=== PATIENT | female | born 1960 | race American Indian/Alaskan Native ===

== ENCOUNTER 2017-10-04 05:46 | Emergency (ER) | payer MEDICARE ==
[2017-10-04 06:59] VITALS: BP 140/78
[2017-10-04 07:36] LABS: Bilirubin,Urine NEG (Negative); Blood,Urine NEG (Negative); Color,Urine Yellow (Yellow); Mucus,Urine 1+ /HPF; Protein,Urine <15 mg/dL mg/dL (Negative); Urobilinogen,Urine < 2.0 mg/dL (<2.0); WBC,Urine < 1.0 /HPF (0.0-6.0)
--- NOTE | 2017-10-04 08:26 | Emergency Department Report ---
ED Rash HPI - HPI Chief Complaint: Urogenital-Female Stated Complaint: BURNING URINATION Time Seen by Provider: 10/04/17 08:15 Duration: 2 Days Location: Other (genital area burning or rash and redness) Suspected Cause: Unknown Rash Symptoms: Yes Itching (burning ), No Facial Swelling, No Tongue/Oral Swelling, No Breathing Difficulties, No Choking Sensation, No Wheezing/Dyspnea, No Peeling, No Blistering, No Fever, No Lightheaded, No Malaise, No Myalgias Severity: severe Other History: This is a 57-year-old female here report that she has vaginal burning and redness and think she has a yeast infection. She has a history of high blood question high cholesterol. She said this has happened to her in the past after taking antibiotics. She denies any vaginal bleeding or discharge. Denies any burning with urination. Denies any fever or chills. Denies any abdominal pain. Denies any back pain. Patient is menopausal. Pain is 9 out of 10 to vaginal area. Burning and worse with walking and touch better at rest. No medication taken for pain. ED Review of Systems ROS: Stated complaint: BURNING URINATION Other details as noted in HPI Constitutional: denies: chills, fever Respiratory: denies: cough, shortness of breath, SOB with exertion, SOB at rest , wheezing Cardiovascular: denies: chest pain, palpitations, edema, syncope Gastrointestinal: denies: nausea, vomiting Genitourinary: other (redness swelling and burning to external vaginal area). denies: urgency, dysuria, frequency, hematuria, discharge, abnormal menses Musculoskeletal: denies: back pain, joint swelling, arthralgia, myalgia Skin: rash, pruritus. denies: lesions Neurological: denies: headache, paresthesias ED Past Medical Hx - Past Medical History Previous Medical History?: Yes Hx Hypertension: Yes Additional medical history: High Cholesterol - Surgical History Past Surgical History?: Yes Additional Surgical History: X 1, Gastric sleeve - Family History Family history: hypertension - Social History Smoking Status: Never Smoker Substance Use Type: None - Medications Home Medications: Home Medications Medication Instructions Recorded Confirmed Last Taken Type Fluconazole [Diflucan TAB] 200 mg PO QDAY 2 Days #2 tablet 10/04/17 Unknown Rx Nystatin Oint [Mycostatin Oint] 1 applicatio TP TID 1 Days #1 tube 10/04/17 Unknown Rx Rash Exam - Exam General: Vital signs noted. No distress. Alert and acting appropriately. This is a 57-year-old female well-nourished well-developed in no acute distress. HEENT: No Periorbital Edema, No Conjuctival Injection, No Chemosis, No Perioral Edema, No Tongue Edema, No Uvular Edema, No Compromised Airway, No Drooling Lungs: Yes Good Air Exchange (CTAB), No Wheezes, No Ronchi, No Stridor, No Cough , No Labored Respirations, No Retractions, No Use of Accessory Muscles, No Other Abnormal Lung Sounds Skin: Yes Tenderness (vulvovaginal area), Yes Erythema (vulvovaginal area), No Urticarial Rash, No Maculopapular Rash, No Morbilliform rash, No Bulla(e), No Excoriations, No Weeping, No Edema, No Encrustations, No Other Other: Positive: Abdomen Normal, Neurologic Normal, Musculoskeletal Normal ED Course Vital Signs 10/04/17 06:49 Temperature 98 F Pulse Rate 58 L Respiratory 16 Rate Blood Pressure 140/78 O2 Sat by Pulse 97 Oximetry - Reevaluation(s) Reevaluation #1: 10/04/17 08:40 Patient remained stable throughout ED stay. ED Medical Decision Making - Medical Decision Making This is a 57-year-old female here report redness swelling itching and burning to her vaginal area that started 2 days ago. She says she has had similar incident in the past after he uses an antibiotic. Denies any vaginal bleeding or discharge. Denies any abdominal or back pain. Denies any urinary burning or frequency. I examined patient and she was found to have vulvovaginitis andrae in nature. I discussed her diagnosis and treatment plan. Patient urinalysis with negative findings. I also discussed her urinalysis results with her. I discussed diagnosis and treatment plan and she voiced understanding. I discussed the patient that she needs to follow-up with her CURB WORKER and if she does not have OB/ MACHINERY REPAIR MAINTENANCE SUPERVISOR that she is to follow-up with outside [facility] CURB WORKER follow-up vulvovaginitis and 2-3 days and she voiced understanding. Patient vital signs are stable she is afebrile and discharged home with prescription for nystatin topical ointment and Diflucan. Critical care attestation.: If time is entered above; I have spent that time in minutes in the direct care of this critically ill patient, excluding procedure time. ED Disposition Clinical Impression: Vulvovaginitis Disposition: - TO HOME OR SELFCARE Is pt being admited?: No Does the pt Need Aspirin: No Condition: Stable Instructions: Vulvovaginal Candidiasis (ED) Additional Instructions: Please keep affected area clean and dry The CURB WORKER in 2-3 days Take medication as prescribed Prescriptions: Fluconazole [Diflucan TAB] 200 mg PO QDAY 2 Days #2 tablet Nystatin Oint [Mycostatin Oint] 1 applicatio TP TID 1 Days #1 tube Referrals: [facility] [Outside] - 2-3 Days ANDIE HAIDER MD [Staff Physician] - 2-3 Days PRIMARY CARE, [Primary Care Provider] - 2-3 Days Forms: Work/School Release Form(ED)
== END 2017-10-04 08:50 | disposition home or self-care (01) ==
LOC: ED 05:46
DX: N76.0 Acute vaginitis (principal); E78.00 Pure hypercholesterolemia, unspecified; I10 Essential (primary) hypertension
CPT/HCPCS: 81001; 99283

== ENCOUNTER 2017-10-20 04:43 | Emergency (ER) | payer MEDICARE ==
--- NOTE | 2017-10-20 08:53 | Emergency Department Report ---
Minor Respiratory - HPI Chief Complaint: Back Pain/Injury Stated Complaint: EXPOSE TO MOLD Time Seen by Provider: 10/20/17 08:29 Duration: 5 weeks Pain Location: Throat, Nose Severity: moderate Minor Respiratory: Yes Rhinorrhea, Yes Sore Throat, Yes Able to Tolerate Fluids , No Ear Pain, No Cough, No Sick Contacts, No Hemoptysis, No Chest Pain, No Shortness of Breath, No Fever Other History: This is a 57-year-old -Citizen Of [place] female presents for evaluation for recent exposure to mold. Patient states she moved into a new apartment 40 days ago and discomfort apartment as mold. She is now complaining of cough, shortness of breath, congestion, and rash. Patient states she went to primary care provider who referred her to an counseling department chair. She is currently taking amoxicillin and prednisone which is improved and symptoms. She is requesting help to move from apartment into new location. Patient states apartment complex have cut into ceiling where mold was found but it continues to return which continues to cause upper respiratory symptoms. Patient denies fever, chest pain, shortness of breath, myalgia, nausea or vomiting, and abdominal pain. ED Review of Systems ROS: Stated complaint: EXPOSE TO MOLD Other details as noted in HPI Constitutional: denies: chills, fever ENT: throat pain, congestion. denies: ear pain, dental pain, hearing loss, epistaxis Respiratory: denies: cough, shortness of breath, wheezing Gastrointestinal: denies: abdominal pain, nausea, diarrhea Skin: denies: rash, lesions Neurological: denies: headache, weakness, paresthesias Psychiatric: denies: anxiety, depression ED Past Medical Hx - Past Medical History Previous Medical History?: Yes Hx Hypertension: Yes Hx Asthma: Yes Additional medical history: High Cholesterol - Surgical History Past Surgical History?: Yes Additional Surgical History: X 1, Gastric sleeve - Social History Smoking Status: Former Smoker Substance Use Type: None - Medications Home Medications: Home Medications Medication Instructions Recorded Confirmed Last Taken Type Fluconazole [Diflucan TAB] 200 mg PO QDAY 2 Days #2 tablet 10/04/17 Unknown Rx Nystatin Oint [Mycostatin Oint] 1 applicatio TP TID 1 Days #1 tube 10/04/17 Unknown Rx Cetirizine HCl [Zyrtec] 10 mg PO DAILY #20 tablet 10/20/17 Unknown Rx Fluticasone [Flonase] 1 spray NS QDAY #1 bottle 10/20/17 Unknown Rx Minor Respiratory Exam - Exam General: Vital signs noted. No distress. Alert and acting appropriately. HEENT: Yes Pharyngeal Erythema, Yes Moist Mucous Membranes, No Pharyngeal Exudates, No Rhinorrhea, No Conjuctival Injection, No Frontal Tenderness, No Maxillary Tenderness Ear: Neither TM Bulge, Neither TM Erythema, Neither EAC Pain, Neither EAC Discharge Neck: Yes Supple, No Adenopathy Lungs: Yes Good Air Exchange, No Wheezes, No Ronchi, No Stridor, No Cough, No Labored Respirations, No Retractions, No Use of Accessory Muscles, No Other Abnormal Lung Sounds Heart: Yes Regular, No Murmur Abdomen: Yes Normal Bowel Sounds, No Tenderness, No Peritoneal Signs Skin: No Rash, No Edema Neurologic: Alert and oriented, no deficits. Musculoskeletal: Unremarkable. ED Course Vital Signs 10/20/17 04:59 Temperature 97.6 F Pulse Rate 54 L Respiratory 18 Rate Blood Pressure 141/81 O2 Sat by Pulse 98 Oximetry ED Medical Decision Making - Medical Decision Making Patient examined by me and stable. No distress noted. Vitals normal. No labs or radiograph obtained at this time. Patient is currently taking antibiotics and steroids which is improved symptoms. Encouraged to complete medication prescribed from counseling department chair. Consults a vp digital marketing social media and crm. Spoke with poison control and instructed patient to find out how apartment was treated and contacted poison control directly. Discharged home stable. Start flonase and cetirizine for allergic rhinitis. Follow up with Primary Care Provider in 2-3 days. Critical care attestation.: If time is entered above; I have spent that time in minutes in the direct care of this critically ill patient, excluding procedure time. ED Disposition Clinical Impression: Allergic rhinitis Qualifiers: Allergic rhinitis trigger: unspecified Allergic rhinitis seasonality: seasonal Qualified Code(s): J30.2 - Other seasonal allergic rhinitis Disposition: DC-01 TO HOME OR SELFCARE Is pt being admited?: No Does the pt Need Aspirin: No Condition: Stable Instructions: Allergic Rhinitis (ED) Additional Instructions: Increase fluid intake and rest. Wash hands frequently. Continue taking tylenol or ibuprofen to control fever. F/U with Primary Care Provider. Return to ER if fever, SOB, or difficulty breathing after 48 hours of supportive care. Prescriptions: Cetirizine HCl [Zyrtec] 10 mg PO DAILY #20 tablet Fluticasone [Flonase] 1 spray NS QDAY #1 bottle Referrals: AROLDO GALVAN MD [Staff Physician] - 3-5 Days [facility] [Outside] - 3-5 Days Forms: Work/School Release Form(ED) Time of Disposition: 09:22 Print Language: BELARUSIAN
[2017-10-20 09:09] VITALS: BP 135/85
== END 2017-10-20 09:59 | disposition home or self-care (01) ==
LOC: ED 04:43
DX: J30.9 Allergic rhinitis, unspecified (principal); I10 Essential (primary) hypertension; E78.00 Pure hypercholesterolemia, unspecified; Z98.84 Bariatric surgery status; Z87.891 Personal history of nicotine dependence
CPT/HCPCS: 99282

== ENCOUNTER 2017-10-22 00:59 | Emergency (ER) | payer MEDICARE ==
[2017-10-22] MEDS ORDERED: DUONEB *Not for PRN Use IH ONE ×2 (01:16→02:34)
[2017-10-22] MEDS ORDERED: TYLENOL ONE (01:28)
[2017-10-22 01:53] VITALS: BP 124/85
[2017-10-22] MEDS ORDERED: TYLENOL PO ONE (02:03)
[2017-10-22 02:31] LABS: Basophils # (Auto) 0.1 K/mm3 (0.0-0.1); Basophils % (Auto) 0.7 % (0.0-1.8); Eosinophils # (Auto) 0.1 K/mm3 (0.0-0.4); Eosinophils % (Auto) 0.9 % (0.0-4.3); Hematocrit 41.5 % (30.3-42.9); Hemoglobin 13.7 gm/dl (10.1-14.3); Lymphocytes # (Auto) 4.2 K/mm3 (1.2-5.4); Lymphocytes % (Auto) 43.5 % (13.4-35.0); Mean Corpuscular HGB Conc 33 % (30-34); Mean Corpuscular Hemoglobin 31 pg (28-32); Mean Corpuscular Volume 93 fl (79-97); Monocytes # (Auto) 0.7 K/mm3 (0.0-0.8); Monocytes % (Auto) 7.2 % (0.0-7.3); Platelet Count 225 K/mm3 (140-440); Red Blood Count 4.47 M/mm3 (3.65-5.03); Red Cell Distribution Width 14.4 % (13.2-15.2)
[2017-10-22 02:50] LABS: BUN/Creatinine Ratio 22; Blood Urea Nitrogen 13 mg/dL (7-17); Calcium 9.2 mg/dL (8.4-10.2); Hemolysis Index 9
--- NOTE | 2017-10-22 02:52 | XRay Report ---
FINAL REPORT EXAM: XR CHEST ROUTINE 2V HISTORY: Shortness of breath TECHNIQUE: PA and lateral views of the chest were obtained. FINDINGS: The heart is mildly enlarged. The lungs are not congested. There are no discrete infiltrates or effusions. The skeletal structures reveal disc degeneration in the dorsal spine. IMPRESSION: Cardiomegaly. No acute infiltrates or congestion.
--- NOTE | 2017-10-22 05:51 | Emergency Department Report ---
ED General Adult HPI - General Chief complaint: Dyspnea/Respdistress Stated complaint: ASTHMA Time Seen by Provider: 10/22/17 05:46 Source: patient Mode of arrival: Ambulatory Limitations: No Limitations - History of Present Illness Initial comments: 57-year-old female presents to the emergency room for shortness of breathing. Patient reports that her home has lacked mold in it. Patient complains of shortness of breathing headache and chest pain. Patient also complains of a rash in her vaginal area. She was prescribed nystatin 10/04 reports that it has helped. But now it's come on the other side of her inner thigh. Severity scale (0 -10): 10 - Related Data Previous Rx's Medication Instructions Recorded Last Taken Type Fluconazole [Diflucan TAB] 200 mg PO QDAY 2 Days #2 tablet 10/04/17 Unknown Rx Cetirizine HCl [Zyrtec] 10 mg PO DAILY #20 tablet 10/20/17 Unknown Rx Fluticasone [Flonase] 1 spray NS QDAY #1 bottle 10/20/17 Unknown Rx Nystatin Oint [Mycostatin Oint] 1 applicatio TP TID 1 Days #1 tube 10/22/17 Unknown Rx Allergies Allergy/AdvReac Type Severity Reaction Status Date / Time No Known Allergies Allergy Unverified 10/04/17 06:59 ED Review of Systems ROS: Stated complaint: ASTHMA Other details as noted in HPI ED Past Medical Hx - Past Medical History Hx Hypertension: Yes Hx Asthma: Yes Additional medical history: High Cholesterol - Surgical History Additional Surgical History: X 1, Gastric sleeve - Social History Smoking Status: Never Smoker Substance Use Type: None - Medications Home Medications: Home Medications Medication Instructions Recorded Confirmed Last Taken Type Fluconazole [Diflucan TAB] 200 mg PO QDAY 2 Days #2 tablet 10/04/17 Unknown Rx Cetirizine HCl [Zyrtec] 10 mg PO DAILY #20 tablet 10/20/17 Unknown Rx Fluticasone [Flonase] 1 spray NS QDAY #1 bottle 10/20/17 Unknown Rx Nystatin Oint [Mycostatin Oint] 1 applicatio TP TID 1 Days #1 tube 10/22/17 Unknown Rx ED Physical Exam - General Limitations: No Limitations General appearance: alert, in no apparent distress - Head Head exam: Present: atraumatic, normocephalic - Eye Eye exam: Present: normal appearance - ENT ENT exam: Present: mucous membranes moist - Respiratory Respiratory exam: Present: normal lung sounds bilaterally. Absent: respiratory distress - Cardiovascular Cardiovascular Exam: Present: regular rate, normal rhythm. Absent: systolic murmur, diastolic murmur, rubs, gallop - External exam: Present: erythema, other (erythematous mildly demarcated rash in her thighs and groin area) - Neurological Exam Neurological exam: Present: alert, oriented X3 - Psychiatric Psychiatric exam: Present: normal affect, normal mood - Skin Skin exam: Present: warm, dry, intact, normal color. Absent: rash ED Course Vital Signs 10/22/17 01:21 Temperature 98.9 F Pulse Rate 75 Respiratory 20 Rate Blood Pressure 124/85 O2 Sat by Pulse 100 Oximetry - Reevaluation(s) Reevaluation #1: 10/22/17 05:58 Patient reports that she feels much better since having medications in triage. The shortness of breathing or cough at this time. ED Medical Decision Making - Lab Data Result diagrams: 10/22/17 02:17 10/22/17 02:17 - Radiology Data Radiology results: report reviewed FINAL REPORT EXAM: XR CHEST ROUTINE 2V HISTORY: Shortness of breath TECHNIQUE: PA and lateral views of the chest were obtained. FINDINGS: The heart is mildly enlarged. The lungs are not congested. There are no discrete infiltrates or effusions. The skeletal structures reveal disc degeneration in the dorsal spine. IMPRESSION: Cardiomegaly. No acute infiltrates or congestion. Transcribed By: RB Dictated By: ANTHONY HIDALGO MD Electronically Authenticated By: ANTHONY HIDALGO MD Signed Date/Time: 10/22/17250 DD/ 0 TD/TT: 10/22/17250 - Medical Decision Making Recently evaluated by this provider in fast track. Patient's had a chest x-ray with normal examination. Troponin level was negative CBC within normal limits CMP within normal limits. We'll discharge patient with her refill on her nystatin for her rash between her legs. Lise patient continue with their chronic medications. Critical care attestation.: If time is entered above; I have spent that time in minutes in the direct care of this critically ill patient, excluding procedure time. ED Disposition Clinical Impression: Anxiety, Tinea cruris Disposition: DC-01 TO HOME OR SELFCARE Is pt being admited?: No Does the pt Need Aspirin: No Condition: Stable Instructions: Zainabck Dania (ED) Additional Instructions: Please use medication to skin as prescribed. I highly recommended to follow up with her primary care provider as well as product blending supervisor. Prescriptions: Nystatin Oint [Mycostatin Oint] 1 applicatio TP TID 1 Days #1 tube Referrals: KAYLEIGH ELIZABETH [Primary Care Provider] - 3-5 Days Forms: Work/School Release Form(ED)
== END 2017-10-22 06:05 | disposition home or self-care (01) ==
LOC: ED 00:59
DX: F41.9 Anxiety disorder, unspecified (principal); B35.6 Tinea cruris; I10 Essential (primary) hypertension; J45.909 Unspecified asthma, uncomplicated; E78.00 Pure hypercholesterolemia, unspecified
CPT/HCPCS: 36415; 71046; 80048; 84484; 85025; 93005; 93010; 94640

== ENCOUNTER 2017-11-04 11:34 | Emergency (ER) | payer MEDICARE ==
[2017-11-04 11:47] VITALS: BP 136/80
--- NOTE | 2017-11-04 13:42 | Emergency Department Report ---
ED General Adult HPI - General Chief complaint: Nausea/Vomiting/Diarrhea Stated complaint: EXPOSED TO MOLD Time Seen by Provider: 11/04/17 13:20 Source: patient Mode of arrival: Ambulatory Limitations: No Limitations - History of Present Illness Initial comments: Ms. Mcbride is a 57 yo female with hx of asthma who has n/v/d which she attributes to black mold exposure in a new apt. She has been treated with abx for upper resp infection recently. However, she returned to the apt to follow repair progress. She now has upper right back pain. - Related Data Previous Rx's Medication Instructions Recorded Last Taken Type Fluconazole [Diflucan TAB] 200 mg PO QDAY 2 Days #2 tablet 10/04/17 Unknown Rx Cetirizine HCl [Zyrtec] 10 mg PO DAILY #20 tablet 10/20/17 Unknown Rx Fluticasone [Flonase] 1 spray NS QDAY #1 bottle 10/20/17 Unknown Rx Nystatin Oint [Mycostatin Oint] 1 applicatio TP TID 1 Days #1 tube 10/22/17 Unknown Rx Allergies Allergy/AdvReac Type Severity Reaction Status Date / Time No Known Allergies Allergy Unverified 10/04/17 06:59 ED Review of Systems ROS: Stated complaint: EXPOSED TO MOLD Other details as noted in HPI Comment: All other systems reviewed and negative Constitutional: malaise. denies: fever Respiratory: denies: cough Cardiovascular: denies: chest pain ED Past Medical Hx - Past Medical History Previous Medical History?: Yes Hx Hypertension: Yes Hx Asthma: Yes Additional medical history: High Cholesterol - Surgical History Past Surgical History?: Yes Additional Surgical History: X 1, Gastric sleeve - Social History Smoking Status: Never Smoker Substance Use Type: None - Medications Home Medications: Home Medications Medication Instructions Recorded Confirmed Last Taken Type Fluconazole [Diflucan TAB] 200 mg PO QDAY 2 Days #2 tablet 10/04/17 Unknown Rx Cetirizine HCl [Zyrtec] 10 mg PO DAILY #20 tablet 10/20/17 Unknown Rx Fluticasone [Flonase] 1 spray NS QDAY #1 bottle 10/20/17 Unknown Rx Nystatin Oint [Mycostatin Oint] 1 applicatio TP TID 1 Days #1 tube 10/22/17 Unknown Rx ED Physical Exam - General Limitations: No Limitations General appearance: alert, in no apparent distress - Head Head exam: Present: atraumatic, normocephalic - Eye Eye exam: Present: normal appearance - ENT ENT exam: Present: mucous membranes moist - Neck Neck exam: Present: normal inspection. Absent: tenderness, meningismus - Respiratory Respiratory exam: Present: normal lung sounds bilaterally. Absent: respiratory distress, wheezes, rales, rhonchi - Cardiovascular Cardiovascular Exam: Present: regular rate, normal rhythm, normal heart sounds. Absent: bradycardia, tachycardia, systolic murmur, diastolic murmur, rubs, gallop - GI/Abdominal GI/Abdominal exam: Present: soft, normal bowel sounds. Absent: distended, tenderness, guarding, rebound - Extremities Exam Extremities exam: Present: normal inspection - Back Exam Back exam: Present: normal inspection. Absent: CVA tenderness (R), CVA tenderness (L) - Neurological Exam Neurological exam: Present: alert, oriented X3 - Psychiatric Psychiatric exam: Present: normal affect, normal mood - Skin Skin exam: Present: warm, dry, intact, normal color. Absent: rash ED Course Vital Signs 11/04/17 11:45 Temperature 98.5 F Pulse Rate 58 L Respiratory 18 Rate Blood Pressure 136/80 O2 Sat by Pulse 96 Oximetry ED Medical Decision Making - Medical Decision Making Ms. Mcbride presents with n/v/d after black mold exposure. Right upper back pain likely musculoskeletal in nature with no indication of pneumonia or PE. Recommended supportive care.. Critical care attestation.: If time is entered above; I have spent that time in minutes in the direct care of this critically ill patient, excluding procedure time. ED Disposition Clinical Impression: Mold exposure Disposition: - TO HOME OR SELFCARE Is pt being admited?: No Does the pt Need Aspirin: No Condition: Stable Instructions: Gastroenteritis (ED) Referrals: [facility] [Outside] - 3-5 Days Time of Disposition: 13:41
== END 2017-11-04 13:59 | disposition home or self-care (01) ==
LOC: ED 11:34
DX: Z77.120 Contact with and (suspected) exposure to mold (toxic) (principal); J45.909 Unspecified asthma, uncomplicated; I10 Essential (primary) hypertension; E78.00 Pure hypercholesterolemia, unspecified
CPT/HCPCS: 99282

== ENCOUNTER 2018-05-14 03:41 | Emergency (ER) | payer MEDICARE ==
[2018-05-14 03:48] VITALS: BP 123/73
[2018-05-14 04:34] LABS: Bacteria,Urine 1+ /HPF (Negative); Bilirubin,Urine NEG (Negative); Blood,Urine SM (Negative); Color,Urine Yellow (Yellow); Hyaline Casts,Urine 4 /LPF; Mucus,Urine FEW /HPF; Protein,Urine <15 mg/dL mg/dL (Negative)
[2018-05-14] MEDS ORDERED: DIFLUCAN PO ONE ×2 (06:10→06:15)
[2018-05-14] MEDS ORDERED: FLAGYL PO ONE (06:10)
--- NOTE | 2018-05-14 06:50 | Emergency Department Report ---
ED Female HPI - General Chief complaint: Urogenital-Female Stated complaint: LOWER ABD PAIN Time Seen by Provider: 05/14/18 06:45 Source: patient Mode of arrival: Ambulatory Limitations: No Limitations - History of Present Illness Initial comments: There is a 58-year-old female who presents for vaginal irritation with white thick discharge fishy ordor pt stated hx of BV recurrent. usual tx with flagyl and diflucan, pt states unable to contact pcp for medication refill, pt is partner for 30 + yrs denies concern for STI, there is no fever no chills non n/v MD Complaint: vaginal discharge Onset/Timin -: week(s) Radiation: non-radiating Severity: mild Severity scale (0 -10): 3 Consistency: constant Improves with: none Associated Symptoms: vaginal discharge - Related Data Sexually active: Yes Previous Rx's Medication Instructions Recorded Last Taken Type Fluconazole [Diflucan TAB] 200 mg PO QDAY 2 Days #2 tablet 10/04/17 Unknown Rx Cetirizine HCl [Zyrtec] 10 mg PO DAILY #20 tablet 10/20/17 Unknown Rx Fluticasone [Flonase] 1 spray NS QDAY #1 bottle 10/20/17 Unknown Rx Nystatin Oint [Mycostatin Oint] 1 applicatio TP TID 1 Days #1 tube 10/22/17 Unknown Rx Cyclobenzaprine [Flexeril] 10 mg PO QHS PRN #20 tablet 12/03/17 Unknown Rx Naproxen [Naprosyn] 375 mg PO BID #30 tablet 12/03/17 Unknown Rx Clindamycin 2% [Clindamycin 2% VAG 1 applicatio VG QHS #7 05/14/18 Unknown Rx CREAM] metroNIDAZOLE [Flagyl] 500 mg PO BID 10 Days #20 tab 05/14/18 Unknown Rx Allergies Allergy/AdvReac Type Severity Reaction Status Date / Time No Known Allergies Allergy Unverified 10/04/17 06:59 ED Review of Systems ROS: Stated complaint: LOWER ABD PAIN Other details as noted in HPI Constitutional: denies: chills, fever Eyes: denies: eye pain, eye discharge, vision change ENT: denies: ear pain, throat pain Respiratory: denies: cough, shortness of breath, wheezing Cardiovascular: denies: chest pain, palpitations Endocrine: no symptoms reported Gastrointestinal: denies: abdominal pain, nausea, diarrhea Genitourinary: urgency, dysuria, other Musculoskeletal: denies: back pain, joint swelling, arthralgia Skin: denies: rash, lesions Neurological: denies: headache, weakness, paresthesias Psychiatric: denies: anxiety, depression Hematological/Lymphatic: denies: easy bleeding, easy bruising ED Past Medical Hx - Past Medical History Previous Medical History?: Yes Hx Hypertension: Yes Hx Asthma: Yes Additional medical history: High Cholesterol - Surgical History Past Surgical History?: Yes Additional Surgical History: X 1, Gastric sleeve - Social History Smoking Status: Never Smoker Substance Use Type: None - Medications Home Medications: Home Medications Medication Instructions Recorded Confirmed Last Taken Type Fluconazole [Diflucan TAB] 200 mg PO QDAY 2 Days #2 tablet 10/04/17 Unknown Rx Cetirizine HCl [Zyrtec] 10 mg PO DAILY #20 tablet 10/20/17 Unknown Rx Fluticasone [Flonase] 1 spray NS QDAY #1 bottle 10/20/17 Unknown Rx Nystatin Oint [Mycostatin Oint] 1 applicatio TP TID 1 Days #1 tube 10/22/17 Unknown Rx Cyclobenzaprine [Flexeril] 10 mg PO QHS PRN #20 tablet 12/03/17 Unknown Rx Naproxen [Naprosyn] 375 mg PO BID #30 tablet 12/03/17 Unknown Rx Clindamycin 2% [Clindamycin 2% VAG 1 applicatio VG QHS #7 05/14/18 Unknown Rx CREAM] metroNIDAZOLE [Flagyl] 500 mg PO BID 10 Days #20 tab 05/14/18 Unknown Rx ED Physical Exam - General Limitations: No Limitations General appearance: alert, in no apparent distress - Head Head exam: Present: atraumatic, normocephalic - Eye Eye exam: Present: normal appearance, PERRL, EOMI Pupils: Present: normal accommodation - ENT ENT exam: Present: normal exam, mucous membranes moist - Neck Neck exam: Present: normal inspection - Respiratory Respiratory exam: Present: normal lung sounds bilaterally. Absent: respiratory distress - Cardiovascular Cardiovascular Exam: Present: regular rate, normal rhythm. Absent: systolic murmur, diastolic murmur, rubs, gallop - GI/Abdominal GI/Abdominal exam: Present: soft, normal bowel sounds - Rectal Rectal exam: Present: deferred - External exam: Present: other (exam deferred per patient ) - Extremities Exam Extremities exam: Present: normal inspection - Back Exam Back exam: Present: normal inspection, full ROM, paraspinal tenderness. Absent: tenderness, CVA tenderness (R), CVA tenderness (L), muscle spasm, rash noted - Neurological Exam Neurological exam: Present: alert, oriented X3, CN II-XII intact, normal gait, reflexes normal. Absent: motor sensory deficit - Psychiatric Psychiatric exam: Present: normal affect, normal mood - Skin Skin exam: Present: warm, dry, intact, normal color. Absent: rash ED Course Vital Signs 05/14/18 03:43 Temperature 98 F Pulse Rate 61 Respiratory 18 Rate Blood Pressure 123/73 ED Medical Decision Making - Medical Decision Making this is recurring BV plan flagyl, and clindamycin vaginal pt will follow up in 2-3 days pt verbalized agreement and understanding of discharge plan. Critical care attestation.: If time is entered above; I have spent that time in minutes in the direct care of this critically ill patient, excluding procedure time. ED Disposition Clinical Impression: Bacterial vaginosis Disposition: DC-01 TO HOME OR SELFCARE Is pt being admited?: No Does the pt Need Aspirin: No Condition: Stable Instructions: Bacterial Vaginosis (ED) Prescriptions: Clindamycin 2% [Clindamycin 2% VAG CREAM] 1 applicatio VG QHS #7 metroNIDAZOLE [Flagyl] 500 mg PO BID 10 Days #20 tab Referrals: JOSE HAIDER MD [Staff Physician] - 3-5 Days Forms: Work/School Release Form(ED) Time of Disposition: 07:05
== END 2018-05-14 07:07 | disposition home or self-care (01) ==
LOC: ED 03:41
DX: N76.0 Acute vaginitis (principal); I10 Essential (primary) hypertension; J45.909 Unspecified asthma, uncomplicated
CPT/HCPCS: 81001

== ENCOUNTER 2019-04-28 23:00 | Emergency (ER) | payer MEDICARE ==
[2019-04-29 02:30] VITALS: BP 130/70
[2019-04-29] MEDS ORDERED: IBUPROFEN 800 MG TAB PO ONE (02:39)
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
== END 2019-04-29 05:10 | disposition home or self-care (01) ==
LOC: ED 23:00
DX: R51 Headache (principal); M62.838 Other muscle spasm; M54.6 Pain in thoracic spine; M54.2 Cervicalgia; I10 Essential (primary) hypertension; J45.909 Unspecified asthma, uncomplicated; E78.00 Pure hypercholesterolemia, unspecified; Z98.890 Other specified postprocedural states; Z79.899 Other long term (current) drug therapy; Z79.1 Long term (current) use of non-steroidal anti-inflammatories (NSAID); Z88.8 Allergy status to other drugs, medicaments and biological substances; V49.49XA Driver injured in collision with other motor vehicles in traffic accident, initial encounter; Y93.89 Activity, other specified; Y92.410 Unspecified street and highway as the place of occurrence of the external cause; Y99.8 Other external cause status
CPT/HCPCS: 70450; 72070; 72125

== ENCOUNTER 2019-05-10 23:25 | Emergency (ER) | payer MEDICARE ==
[2019-05-10 23:56] VITALS: BP 109/80
[2019-05-11] MEDS ORDERED: dexAMETHasone 20 MG/5 ML VIAL IV ONE (00:11)
[2019-05-11] MEDS ORDERED: SODIUM CHLORIDE 0.9% 1000 ML 1,000 ML IV ONE (00:11)
[2019-05-11] MEDS ORDERED: MAGNESIUM SULFATE 1 GM in SODIUM CHLORIDE 0.9% 50 ML IV ONE (00:11)
--- NOTE | 2019-05-11 00:52 | Emergency Department Report ---
ED Asthma HPI - General Chief Complaint: Adult Asthma Stated Complaint: ASTHMA/COUGH Time Seen by Provider: 05/11/19 00:00 Source: patient Mode of arrival: Ambulatory Limitations: No Limitations - History of Present Illness Initial Comments: Patient is a 59-year-old female presents emergency room with complaints of an asthma exacerbation that began 3 to 4 days ago. She has associated cough, wheezing, shortness of breath, chest tightness. She states she has been using approximately 4-5 nebulizer treatments today. She states that she also uses a steroid inhaler but is not sure of the name. She states she has also been having approximately 3 episodes of diarrhea a day. She denies any nausea, vomiting, fever. She denies any sick contacts or recent travel. She states she has a past medical history of hypertension, hyperlipidemia, asthma. She denies any allergies to medications. she states she does have seasonal allergies but is not currently on an allergy medication. - Related Data Previous Rx's Medication Instructions Recorded Last Taken Type Fluconazole [Diflucan TAB] 200 mg PO QDAY 2 Days #2 tablet 10/04/17 Unknown Rx Cetirizine HCl [Zyrtec 10mg tab] 10 mg PO DAILY #20 tablet 10/20/17 Unknown Rx Fluticasone [Flonase] 1 spray NS QDAY #1 bottle 10/20/17 Unknown Rx Nystatin Oint [Mycostatin Oint] 1 applicatio TP TID 1 Days #1 tube 10/22/17 Unknown Rx Cyclobenzaprine [Flexeril] 10 mg PO QHS PRN #20 tablet 12/03/17 Unknown Rx Naproxen [Naprosyn] 375 mg PO BID #30 tablet 12/03/17 Unknown Rx Clindamycin 2% [Clindamycin 2% VAG 1 applicatio VG QHS #7 05/14/18 Unknown Rx CREAM] metroNIDAZOLE [Flagyl] 500 mg PO BID 10 Days #20 tab 05/14/18 Unknown Rx Cyclobenzaprine [Flexeril] 10 mg PO TID PRN #12 tablet 04/29/19 Unknown Rx Ibuprofen [Motrin 800 MG tab] 800 mg PO Q8HR PRN #20 tablet 04/29/19 Unknown Rx Cetirizine HCl [Zyrtec 10mg tab] 10 mg PO DAILY #30 tablet 05/11/19 Unknown Rx predniSONE [Deltasone] 40 mg PO QDAY 7 Days #14 tab 05/11/19 Unknown Rx Allergies Allergy/AdvReac Type Severity Reaction Status Date / Time pollen extracts Allergy Itching Verified 04/29/19 05:04 ED Review of Systems ROS: Stated complaint: ASTHMA/COUGH Other details as noted in HPI Comment: All other systems reviewed and negative ED Past Medical Hx - Past Medical History Previous Medical History?: Yes Hx Hypertension: Yes Hx Asthma: Yes Additional medical history: High Cholesterol - Surgical History Past Surgical History?: Yes Additional Surgical History: X 1, Gastric sleeve - Social History Smoking Status: Never Smoker - Medications Home Medications: Home Medications Medication Instructions Recorded Confirmed Last Taken Type Fluconazole [Diflucan TAB] 200 mg PO QDAY 2 Days #2 tablet 10/04/17 Unknown Rx Cetirizine HCl [Zyrtec 10mg tab] 10 mg PO DAILY #20 tablet 10/20/17 Unknown Rx Fluticasone [Flonase] 1 spray NS QDAY #1 bottle 10/20/17 Unknown Rx Nystatin Oint [Mycostatin Oint] 1 applicatio TP TID 1 Days #1 tube 10/22/17 Unknown Rx Cyclobenzaprine [Flexeril] 10 mg PO QHS PRN #20 tablet 12/03/17 Unknown Rx Naproxen [Naprosyn] 375 mg PO BID #30 tablet 12/03/17 Unknown Rx Clindamycin 2% [Clindamycin 2% VAG 1 applicatio VG QHS #7 05/14/18 Unknown Rx CREAM] metroNIDAZOLE [Flagyl] 500 mg PO BID 10 Days #20 tab 05/14/18 Unknown Rx Cyclobenzaprine [Flexeril] 10 mg PO TID PRN #12 tablet 04/29/19 Unknown Rx Ibuprofen [Motrin 800 MG tab] 800 mg PO Q8HR PRN #20 tablet 04/29/19 Unknown Rx Cetirizine HCl [Zyrtec 10mg tab] 10 mg PO DAILY #30 tablet 05/11/19 Unknown Rx predniSONE [Deltasone] 40 mg PO QDAY 7 Days #14 tab 05/11/19 Unknown Rx ED Physical Exam - General Limitations: No Limitations General appearance: alert, in no apparent distress - Head Head exam: Present: atraumatic, normocephalic - Eye Eye exam: Present: normal appearance - ENT ENT exam: Present: mucous membranes moist - Respiratory Respiratory exam: Present: respiratory distress (moderate), wheezes (bilaterally), prolonged expiratory, other (tachypnea). Absent: rales, rhonchi, stridor, chest wall tenderness, accessory muscle use, decreased breath sounds - Cardiovascular Cardiovascular Exam: Present: regular rate, normal rhythm, normal heart sounds. Absent: systolic murmur, diastolic murmur, rubs, gallop - Neurological Exam Neurological exam: Present: alert, oriented X3 - Psychiatric Psychiatric exam: Present: normal affect, normal mood - Skin Skin exam: Present: warm, dry, intact ED Course Vital Signs 05/10/19 05/11/19 23:51 01:33 Temperature 99.1 F Pulse Rate 91 H Pulse Rate [ 89 Posterior Throughout] Respiratory 22 Rate Respiratory 22 Rate [Posterior Throughout] Blood Pressure 109/80 O2 Sat by Pulse 98 Oximetry ED Medical Decision Making - Lab Data Result diagrams: 05/11/19 00:43 05/11/19 00:43 Lab Results 05/11/19 05/11/19 Range/Units 00:43 00:43 WBC 6.0 (4.5-11.0) K/mm3 RBC 4.35 (3.65-5.03) M/mm3 Hgb 13.2 (10.1-14.3) gm/dl Hct 39.8 (30.3-42.9) % MCV 92 (79-97) fl MCH 30 (28-32) pg MCHC 33 (30-34) % RDW 14.1 (13.2-15.2) % Plt Count 221 (140-440) K/mm3 Lymph % (Auto) 35.7 H (13.4-35.0) % [place] % (Auto) 12.7 H (0.0-7.3) % Eos % (Auto) 2.7 (0.0-4.3) % Baso % (Auto) 0.8 (0.0-1.8) % Lymph # 2.1 (1.2-5.4) K/mm3 [place] # 0.8 (0.0-0.8) K/mm3 Eos # 0.2 (0.0-0.4) K/mm3 Baso # 0.0 (0.0-0.1) K/mm3 Seg Neutrophils % 48.1 (40.0-70.0) % Seg Neutrophils # 2.9 (1.8-7.7) K/mm3 Sodium 142 (137-145) mmol/L Potassium 4.0 (3.6-5.0) mmol/L Chloride 107.2 H (98-107) mmol/L Carbon Dioxide 24 (22-30) mmol/L Anion Gap 15 mmol/L BUN 10 (7-17) mg/dL Creatinine 0.7 (0.7-1.2) mg/dL Estimated GFR > 60 ml/min BUN/Creatinine Ratio 14 % Glucose 90 (65-100) mg/dL Calcium 8.7 (8.4-10.2) mg/dL Total Bilirubin 0.20 (0.1-1.2) mg/dL AST 20 (5-40) units/L ALT 22 (7-56) units/L Alkaline Phosphatase 111 (35-129) units/L Total Protein 6.3 (6.3-8.2) g/dL Albumin 3.4 L (3.9-5) g/dL Albumin/Globulin Ratio 1.2 % - Radiology Data Radiology results: report reviewed CHEST 1 VIEW INDICATION / CLINICAL INFORMATION: SOB, cough, asthma. COMPARISON: [facility] 18 FINDINGS: SUPPORT DEVICES: None. HEART / MEDIASTINUM: Mild cardiomegaly LUNGS / PLEURA: No significant pulmonary or pleural abnormality. No pneumothorax. ADDITIONAL FINDINGS: No significant additional findings. IMPRESSION: No acute pulmonary or pleural abnormality. No change from 10/21/2017 Signer Name: Mendel Perez MD FACR Signed: 05/11/2019 12:47 AM Workstation Name: [id number] Transcribed By: MS Dictated By: Mendel Perez MD Electronically Authenticated By: Mendel Perez MD Signed Date/Time: 05/11/19 0047 DD/ 0046 TD/TT: - Medical Decision Making Patient is a 59-year-old female presents emergency room with complaints of an asthma exacerbation that began 3 to 4 days ago. She has associated cough, wheezing, shortness of breath, chest tightness. She states she has been using approximately 4-5 nebulizer treatments today. She states that she also uses a steroid inhaler but is not sure of the name. She states she has also been having approximately 3 episodes of diarrhea a day. She denies any nausea, vomiting, fever. She denies any sick contacts or recent travel. She states she has a past medical history of hypertension, hyperlipidemia, asthma. She denies any allergies to medications. she states she does have seasonal allergies but is not currently on an allergy medication. Vitals are normal. On exam: Moderate respiratory distress, bilateral wheezing, tachypnea. Patient given continuous neb treatment, fluids, magnesium, steroids. On reexamination breath sounds have completely improved patient has no wheezing and patient is feeling much better she has good air movement. Patient was ambulated by EMT down the hallway while monitoring oxygen saturation and her oxygen saturation never went below 97% on room air. Labs are normal. Chest x-ray with no acute process. pt given prescription for steroids and zyrtec. advised pt Please take medication as prescribed. Please continue doing your nebulizer treatments. Follow-up with a primary care doctor in the next 2 to 3 days for reexamination. Return to the emergency room immediately for any new or worsening symptoms including but not limited to increasing shortness of breath, high fevers, chest pain, etc. - Differential Diagnosis asthma, bronchitis, URI, PNA, viral syndrome Critical care attestation.: If time is entered above; I have spent that time in minutes in the direct care of this critically ill patient, excluding procedure time. ED Disposition Clinical Impression: Asthma exacerbation Qualifiers: Asthma severity: unspecified severity Asthma persistence: unspecified Qualified Code(s): J45.901 - Unspecified asthma with (acute) exacerbation Disposition: - TO HOME OR SELFCARE Is pt being admited?: No Does the pt Need Aspirin: No Condition: Stable Instructions: Asthma (ED) Additional Instructions: Please take medication as prescribed. Please continue doing your nebulizer treatments. Follow-up with a primary care doctor in the next 2 to 3 days for reexamination. Return to the emergency room immediately for any new or worsening symptoms including but not limited to increasing shortness of breath, high fevers, chest pain, etc. Prescriptions: predniSONE [Deltasone] 40 mg PO QDAY 7 Days #14 tab Cetirizine HCl [Zyrtec 10mg tab] 10 mg PO DAILY #30 tablet Referrals: ANGELLA MEI MD [Staff Physician] - 2-3 Days [facility] [Provider Group] - 2-3 Days Time of Disposition: 01:57 Print Language: LATVIAN
[2019-05-11 01:30] LABS: Alanine Aminotransferase 22 units/L (7-56); Albumin 3.4 g/dL (3.9-5); BUN/Creatinine Ratio 14; Blood Urea Nitrogen 10 mg/dL (7-17); Calcium 8.7 mg/dL (8.4-10.2); Hemolysis Index 1
[2019-05-11 01:33] LABS: Basophils % (Auto) 0.8 % (0.0-1.8); Eosinophils # (Auto) 0.2 K/mm3 (0.0-0.4); Eosinophils % (Auto) 2.7 % (0.0-4.3); Hematocrit 39.8 % (30.3-42.9); Hemoglobin 13.2 gm/dl (10.1-14.3); Lymphocytes # (Auto) 2.1 K/mm3 (1.2-5.4); Lymphocytes % (Auto) 35.7 % (13.4-35.0); Mean Corpuscular HGB Conc 33 % (30-34); Mean Corpuscular Volume 92 fl (79-97); Monocytes # (Auto) 0.8 K/mm3 (0.0-0.8); Monocytes % (Auto) 12.7 % (0.0-7.3); Platelet Count 221 K/mm3 (140-440); Red Blood Count 4.35 M/mm3 (3.65-5.03); Red Cell Distribution Width 14.1 % (13.2-15.2)
[2019-05-11] MEDS ORDERED: ALBUTEROL 2.5 MG/3 ML NEBU IH ONE (01:35)
[2019-05-11] MEDS ORDERED: IPRATROPIUM 0.02% NEBU 2.5 ML IH ONE (01:37)
== END 2019-05-11 02:00 | disposition home or self-care (01) ==
LOC: ED 23:25
DX: J45.901 Unspecified asthma with (acute) exacerbation (principal)
CPT/HCPCS: 36415; 71045; 80053; 85025; 94644; 96361; 96365; 96375; 99284; J1100; J3475; J7030

== ENCOUNTER 2019-06-09 22:17 | Emergency (ER) | payer MEDICARE ==
--- NOTE | 2019-06-09 23:09 | Emergency Department Report ---
HPI - General Chief Complaint: Allergic Reaction Time Seen by Provider: 06/09/19 22:55 ED Past Medical Hx - Past Medical History Hx Hypertension: Yes Hx Asthma: Yes Additional medical history: High Cholesterol - Surgical History Additional Surgical History: X 1, Gastric sleeve - Social History Smoking Status: Never Smoker Substance Use Type: Alcohol - Medications Home Medications: Home Medications Medication Instructions Recorded Confirmed Last Taken Type Fluconazole [Diflucan TAB] 200 mg PO QDAY 2 Days #2 tablet 10/04/17 Unknown Rx Cetirizine HCl [Zyrtec 10mg tab] 10 mg PO DAILY #20 tablet 10/20/17 Unknown Rx Fluticasone [Flonase] 1 spray NS QDAY #1 bottle 10/20/17 Unknown Rx Nystatin Oint [Mycostatin Oint] 1 applicatio TP TID 1 Days #1 tube 10/22/17 Unknown Rx Cyclobenzaprine [Flexeril] 10 mg PO QHS PRN #20 tablet 12/03/17 Unknown Rx Naproxen [Naprosyn] 375 mg PO BID #30 tablet 12/03/17 Unknown Rx Clindamycin 2% [Clindamycin 2% VAG 1 applicatio VG QHS #7 05/14/18 Unknown Rx CREAM] metroNIDAZOLE [Flagyl] 500 mg PO BID 10 Days #20 tab 05/14/18 Unknown Rx Cyclobenzaprine [Flexeril] 10 mg PO TID PRN #12 tablet 04/29/19 Unknown Rx Ibuprofen [Motrin 800 MG tab] 800 mg PO Q8HR PRN #20 tablet 04/29/19 Unknown Rx Cetirizine HCl [Zyrtec 10mg tab] 10 mg PO DAILY #30 tablet 05/11/19 Unknown Rx predniSONE [Deltasone] 40 mg PO QDAY 7 Days #14 tab 05/11/19 Unknown Rx ED Review of Systems ROS: Stated complaint: POSS ALLERGIC REACTION Other details as noted in HPI Critical care attestation.: If time is entered above; I have spent that time in minutes in the direct care of this critically ill patient, excluding procedure time. ED Disposition Condition: Stable Referrals: SANDIE GARCIA MD [Primary Care Provider] - 3-5 Days
[2019-06-09 23:10] VITALS: BP 109/68
[2019-06-09] MEDS ORDERED: dexAMETHasone 20 MG/5 ML VIAL IM ONE (23:11)
--- NOTE | 2019-06-09 23:25 | Emergency Department Report ---
ED Rash HPI - HPI Chief Complaint: Allergic Reaction Stated Complaint: POSS ALLERGIC REACTION Time Seen by Provider: 06/09/19 22:55 Duration: Today Location: Upper Extremities (right) Rash Symptoms: Yes Itching, No Facial Swelling, No Tongue/Oral Swelling, No Breathing Difficulties, No Choking Sensation, No Wheezing/Dyspnea, No Peeling, No Blistering, No Fever, No Lightheaded, No Malaise, No Myalgias Other History: 59-year-old -Italian female presents to the emergency room for right arm redness and itchiness status post given an allergy shot earlier today. Patient states that she has a history of seasonal allergy and usually goes to the apprentice instrument technician for allergy shots every 2 weeks. Patient states that she has not been in a month and went today to have her allergy shots secondary to COVID-19. Patient states this afternoon she started to have itchiness and redness to her right upper arm. Patient reports that she usually takes Claritin 10 mg daily for her seasonal allergy and has taken it today. Patient is denies any shortness of breath or chest pain. Patient has not taken any Benadryl for her discomfort. ED Review of Systems ROS: Stated complaint: POSS ALLERGIC REACTION Other details as noted in HPI ED Past Medical Hx - Past Medical History Hx Hypertension: Yes Hx Asthma: Yes Additional medical history: High Cholesterol - Surgical History Additional Surgical History: X 1, Gastric sleeve - Social History Smoking Status: Never Smoker Substance Use Type: Alcohol - Medications Home Medications: Home Medications Medication Instructions Recorded Confirmed Last Taken Type Fluconazole [Diflucan TAB] 200 mg PO QDAY 2 Days #2 tablet 10/04/17 Unknown Rx Cetirizine HCl [Zyrtec 10mg tab] 10 mg PO DAILY #20 tablet 10/20/17 Unknown Rx Fluticasone [Flonase] 1 spray NS QDAY #1 bottle 10/20/17 Unknown Rx Nystatin Oint [Mycostatin Oint] 1 applicatio TP TID 1 Days #1 tube 10/22/17 Unknown Rx Cyclobenzaprine [Flexeril] 10 mg PO QHS PRN #20 tablet 12/03/17 Unknown Rx Naproxen [Naprosyn] 375 mg PO BID #30 tablet 12/03/17 Unknown Rx Clindamycin 2% [Clindamycin 2% VAG 1 applicatio VG QHS #7 05/14/18 Unknown Rx CREAM] metroNIDAZOLE [Flagyl] 500 mg PO BID 10 Days #20 tab 05/14/18 Unknown Rx Cyclobenzaprine [Flexeril] 10 mg PO TID PRN #12 tablet 04/29/19 Unknown Rx Ibuprofen [Motrin 800 MG tab] 800 mg PO Q8HR PRN #20 tablet 04/29/19 Unknown Rx Cetirizine HCl [Zyrtec 10mg tab] 10 mg PO DAILY #30 tablet 05/11/19 Unknown Rx predniSONE [Deltasone] 40 mg PO QDAY 7 Days #14 tab 05/11/19 Unknown Rx Rash Exam - Exam General: Vital signs noted. No distress. Alert and acting appropriately. HEENT: No Periorbital Edema, No Conjuctival Injection, No Chemosis, No Perioral Edema, No Tongue Edema, No Uvular Edema, No Compromised Airway, No Drooling Lungs: Yes Good Air Exchange (Normal Breath Sounds), No Wheezes, No Ronchi, No Stridor, No Cough, No Labored Respirations, No Retractions, No Use of Accessory Muscles, No Other Abnormal Lung Sounds Skin: Yes Maculopapular Rash Other: Positive: Abdomen Normal, Neurologic Normal, Musculoskeletal Normal ED Course Vital Signs 06/09/19 22:29 Temperature 98.1 F Pulse Rate 75 Respiratory 18 Rate Blood Pressure 109/68 O2 Sat by Pulse 97 Oximetry ED Medical Decision Making - Medical Decision Making 59-year-old -Italian female presents to the emergency room for right arm redness and itchiness status post given an allergy shot earlier today. Patient states that she has a history of seasonal allergy and usually goes to the apprentice instrument technician for allergy shots every 2 weeks. Patient states that she has not been in a month and went today to have her allergy shots secondary to COVID-19. Patient states this afternoon she started to have itchiness and redness to her right upper arm. Patient reports that she usually takes Claritin 10 mg daily for her seasonal allergy and has taken it today. Patient is denies any shortness of breath or chest pain. Patient has not taken any Benadryl for her discomfort. Patient will be given a dexamethasone 10 mg IM shot for discomfort. Patient is driving therefore we will not give her Benadryl but instructed her to take Benadryl when she gets home for the itchiness. Patient can use [id number] hydrocortisone cream to help with the itchiness. I encourage patient to continue taking her Claritin daily and to call her apprentice instrument technician in the morning to inform them of her reaction. Critical care attestation.: If time is entered above; I have spent that time in minutes in the direct care of this critically ill patient, excluding procedure time. ED Disposition Clinical Impression: Allergic reaction to allergen immunotherapy Disposition: TO HOME OR SELFCARE Is pt being admited?: No Does the pt Need Aspirin: No Condition: Stable Additional Instructions: Please take Benadryl once you get home for your reaction. You can take that every 4-6 hours. I recommend taking [id number] hydrocortisone cream to apply to your right upper arm. Continue taking your Claritin daily as prescribed by your apprentice instrument technician. And call in the morning to your apprentice instrument technician and inform them your reaction. Return back to the emergency room if you start to have any shortness of breath chest pain difficulty swallowing difficulty breathing. Referrals: SANDIE GARCIA MD [Primary Care Provider] - 3-5 Days
== END 2019-06-09 23:44 | disposition home or self-care (01) ==
LOC: ED 22:17
DX: T78.49XA Other allergy, initial encounter (principal); I10 Essential (primary) hypertension; J45.909 Unspecified asthma, uncomplicated; E78.00 Pure hypercholesterolemia, unspecified; Z98.890 Other specified postprocedural states; Z79.1 Long term (current) use of non-steroidal anti-inflammatories (NSAID); Z79.899 Other long term (current) drug therapy; Z88.8 Allergy status to other drugs, medicaments and biological substances; X58.XXXA Exposure to other specified factors, initial encounter
CPT/HCPCS: 96372; 99282; J1100

== ENCOUNTER 2019-12-06 05:24 | Emergency (ER) | payer MEDICARE ==
[2019-12-06 06:14] LABS: Basophils % (Auto) 0.7 % (0.0-1.8); Eosinophils # (Auto) 0.1 K/mm3 (0.0-0.4); Eosinophils % (Auto) 1.5 % (0.0-4.3); Hematocrit 40.1 % (30.3-42.9); Hemoglobin 13.4 gm/dl (10.1-14.3); Lymphocytes # (Auto) 1.5 K/mm3 (1.2-5.4); Lymphocytes % (Auto) 34.8 % (13.4-35.0); Mean Corpuscular HGB Conc 34 % (30-34); Mean Corpuscular Volume 91 fl (79-97); Monocytes # (Auto) 0.5 K/mm3 (0.0-0.8); Monocytes % (Auto) 10.5 % (0.0-7.3); Platelet Count 223 K/mm3 (140-440); Red Blood Count 4.38 M/mm3 (3.65-5.03); Red Cell Distribution Width 14.4 % (13.2-15.2)
--- NOTE | 2019-12-06 06:25 | XRay Report ---
CHEST 1 VIEW 12/06/2019 5:18 AM INDICATION / CLINICAL INFORMATION: Chest Pain. COMPARISON: 10/22/19 FINDINGS: SUPPORT DEVICES: None. HEART / MEDIASTINUM: No significant abnormality. LUNGS / PLEURA: No significant pulmonary or pleural abnormality. No pneumothorax. ADDITIONAL FINDINGS: No significant additional findings. IMPRESSION: 1. No acute findings. No change. Signer Name: Caroline Lindsey MD Signed: 12/06/2019 6:21 AM Workstation Name: [id number]
[2019-12-06 06:33] LABS: BUN/Creatinine Ratio 18; Blood Urea Nitrogen 16 mg/dL (7-17); Calcium 9.1 mg/dL (8.4-10.2); Hemolysis Index 3
--- NOTE | 2019-12-06 08:36 | Emergency Department Report ---
ED Chest Pain HPI - General Chief Complaint: Chest Pain Stated Complaint: DIFFICULTY IN BREATHING, CHEST PAIN PUI?: No Time Seen by Provider: 12/06/19 08:23 Source: patient, RN notes reviewed, old records reviewed Mode of arrival: Ambulatory Limitations: No Limitations - History of Present Illness Initial Comments: The patient was evaluated in the emergency department for symptoms described in the history of present illness. He/she was evaluated in the context of the global COVID-19 pandemic, which necessitated consideration that the patient might be at risk for infection with the virus that causes COVID-19. Institutional protocols and algorithms that pertain to the evaluation of patients at risk for COVID-19 are in a state of rapid change based on information released by regulatory bodies including the CDC and federal and state organizations. These policies and algorithms were followed during the patient's care in the emergency department. Please note that these policies, procedures and recommendations changed on a rapid basis. This patient is a pleasant 59-year-old female with a history of asthma, intoler ance to mold/allergens, who does not smoke cigarettes, tobacco or any smoke products whatsoever, who denies a history of DVT, pulmonary embolism risk factors, and denies family history of heart disease, DVT/pulmonary embolism, presenting with 2 to 3 months of chest wall pain with associated cough, which is nonradiating, nonexertional, without vomiting, diaphoresis, or exertional shortness of breath, associated with "mold exposure", from her apartment. Denies additional complaints. She denies new or different change in physical exercise tolerance. There is no posterior leg pain or leg swelling, surgery, oral contraceptive use, or recent immobilization. No hematemesis or bright red blood per rectum. Pain is intermittently on the central chest, left side of the chest, and right side of the chest, increases with palpation and range of motion, coughing, decreases with rest, position, and "walking away from the mold." MD Complaint: chest pain -: Gradual, month(s) Onset: other Pain Location: substernal, left chest, right chest Pain Radiation: none Severity: moderate Quality: aching Consistency: intermittent Improves With: other Worsens With: other Context: other Aspirin use within the Past 7 Days: (1) Yes - Related Data On Oral Contraceptives: No Previous Rx's Medication Instructions Recorded Last Taken Type Cetirizine HCl [Zyrtec 10mg tab] 10 mg PO DAILY #20 tablet 10/20/17 Unknown Rx Fluticasone [Flonase] 1 spray NS QDAY #1 bottle 10/20/17 Unknown Rx Nystatin Oint [Mycostatin Oint] 1 applicatio TP TID 1 Days #1 tube 10/22/17 Unknown Rx Naproxen [Naprosyn] 375 mg PO BID #30 tablet 12/03/17 Unknown Rx Clindamycin 2% [Clindamycin 2% VAG 1 applicatio VG QHS #7 05/14/18 Unknown Rx CREAM] Ibuprofen [Motrin 800 MG tab] 800 mg PO Q8HR PRN #20 tablet 04/29/19 Unknown Rx Cetirizine HCl [Zyrtec 10mg tab] 10 mg PO DAILY #30 tablet 05/11/19 Unknown Rx predniSONE [Deltasone] 40 mg PO QDAY 7 Days #14 tab 05/11/19 Unknown Rx Acetaminophen [Non-Aspirin Extra 500 mg PO Q6HR PRN #30 tablet 12/06/19 Unknown Rx Strength] Albuterol Sulfate [Proair 90 mcg IH Q4HR PRN #2 aer.pow.ba 12/06/19 Unknown Rx Respiclick] Ibuprofen [Motrin] 600 mg PO Q8H PRN #30 tablet 12/06/19 Unknown Rx Allergies Allergy/AdvReac Type Severity Reaction Status Date / Time mold Allergy Shortness Verified 12/06/19 05:29 of Breath pollen extracts Allergy Itching Verified 06/09/19 22:31 Heart Score - HEART Score History: Slightly suspicious EKG: Normal Age: 45-65 Risk factors: 1-2 risk factors Troponin: < normal limit HEART Score: 2 - Critical Actions Critical Actions: 0-3 pts:0.9-1.7%risk of adverse cardiac event.Candidate for discharge ED Review of Systems ROS: Stated complaint: DIFFICULTY IN BREATHING, CHEST PAIN Other details as noted in HPI Comment: All other systems reviewed and negative Respiratory: cough. denies: wheezing Cardiovascular: chest pain ED Past Medical Hx - Past Medical History Previous Medical History?: Yes Hx Hypertension: Yes Hx Asthma: Yes Additional medical history: High Cholesterol - Surgical History Past Surgical History?: Yes Additional Surgical History: X 1, Gastric sleeve - Social History Smoking Status: Never Smoker - Medications Home Medications: Home Medications Medication Instructions Recorded Confirmed Last Taken Type Cetirizine HCl [Zyrtec 10mg tab] 10 mg PO DAILY #20 tablet 10/20/17 Unknown Rx Fluticasone [Flonase] 1 spray NS QDAY #1 bottle 10/20/17 Unknown Rx Nystatin Oint [Mycostatin Oint] 1 applicatio TP TID 1 Days #1 tube 10/22/17 Unknown Rx Naproxen [Naprosyn] 375 mg PO BID #30 tablet 12/03/17 Unknown Rx Clindamycin 2% [Clindamycin 2% VAG 1 applicatio VG QHS #7 05/14/18 Unknown Rx CREAM] Ibuprofen [Motrin 800 MG tab] 800 mg PO Q8HR PRN #20 tablet 04/29/19 Unknown Rx Cetirizine HCl [Zyrtec 10mg tab] 10 mg PO DAILY #30 tablet 05/11/19 Unknown Rx predniSONE [Deltasone] 40 mg PO QDAY 7 Days #14 tab 05/11/19 Unknown Rx Acetaminophen [Non-Aspirin Extra 500 mg PO Q6HR PRN #30 tablet 12/06/19 Unknown Rx Strength] Albuterol Sulfate [Proair 90 mcg IH Q4HR PRN #2 aer.pow.ba 12/06/19 Unknown Rx Respiclick] Ibuprofen [Motrin] 600 mg PO Q8H PRN #30 tablet 12/06/19 Unknown Rx ED Physical Exam - General Limitations: No Limitations General appearance: alert, in no apparent distress - Head Head exam: Present: atraumatic, normocephalic - Eye Eye exam: Present: normal appearance, EOMI. Absent: nystagmus - ENT ENT exam: Present: normal exam, normal orophraynx, mucous membranes moist, normal external ear exam - Neck Neck exam: Present: normal inspection, full ROM. Absent: tenderness, meningismus - Respiratory Respiratory exam: Present: normal lung sounds bilaterally, chest wall tenderness. Absent: respiratory distress, wheezes, rales, rhonchi, stridor - Cardiovascular Cardiovascular Exam: Present: regular rate, normal rhythm, normal heart sounds. Absent: bradycardia, tachycardia, irregular rhythm, systolic murmur, diastolic murmur, rubs, gallop - GI/Abdominal GI/Abdominal exam: Present: soft. Absent: distended, tenderness, guarding, rebound, rigid, pulsatile mass - Extremities Exam Extremities exam: Present: normal inspection, full ROM, other (2+ pulses noted in the bilateral upper and lower extremities. There is no palpable cord. negative Homans sign. Muscular compartments are soft. The pelvis is stable.). Absent: pedal edema, calf tenderness - Back Exam Back exam: Present: normal inspection, full ROM. Absent: tenderness, CVA tenderness (R), CVA tenderness (L), paraspinal tenderness, vertebral tenderness - Neurological Exam Neurological exam: Present: alert, normal gait, other (No facial droop. Tongue midline. Extraocular movements intact bilaterally. Facial sensation intact to light touch in V1, V2, V3 distribution bilaterally. 5 and a 5 strength in 4 extremities. Sensation intact to light touch in 4 extremities.). Absent: motor sensory deficit - Psychiatric Psychiatric exam: Present: normal affect, normal mood - Skin Skin exam: Present: warm, dry, intact, normal color. Absent: rash ED Course Vital Signs 12/06/19 12/06/19 05:32 08:30 Temperature 97.9 F Pulse Rate 73 57 L Respiratory 18 13 Rate Blood Pressure 106/63 111/60 O2 Sat by Pulse 97 96 Oximetry WYATT score - Wyatt Score Age > 65: (0) No Aspirin use within the Past 7 Days: (1) Yes 3 or more CAD Risk Factors: (0) No 2 or more Angina events in past 24 hrs: (0) No Known CAD with more than 50% Stenosis: (0) No Elevated Cardiac Markers: (0) No ST Deviation Greater than 0.5mm: (0) No WYATT Score: 1 ED Medical Decision Making - Lab Data Result diagrams: 12/06/19 05:44 12/06/19 05:44 Vital Signs 12/06/19 12/06/19 05:32 08:30 Temperature 97.9 F Pulse Rate 73 57 L Respiratory 18 13 Rate Blood Pressure 106/63 111/60 O2 Sat by Pulse 97 96 Oximetry Lab Results 12/06/19 12/06/19 Range/Units 05:44 05:44 WBC 4.4 L (4.5-11.0) K/mm3 RBC 4.38 (3.65-5.03) M/mm3 Hgb 13.4 (10.1-14.3) gm/dl Hct 40.1 (30.3-42.9) % MCV 91 (79-97) fl MCH 31 (28-32) pg MCHC 34 (30-34) % RDW 14.4 (13.2-15.2) % Plt Count 223 (140-440) K/mm3 Lymph % (Auto) 34.8 (13.4-35.0) % Foard % (Auto) 10.5 H (0.0-7.3) % Eos % (Auto) 1.5 (0.0-4.3) % Baso % (Auto) 0.7 (0.0-1.8) % Lymph # (Auto) 1.5 (1.2-5.4) K/mm3 Foard # (Auto) 0.5 (0.0-0.8) K/mm3 Eos # (Auto) 0.1 (0.0-0.4) K/mm3 Baso # (Auto) 0.0 (0.0-0.1) K/mm3 Seg Neutrophils % 52.5 (40.0-70.0) % Seg Neutrophils # 2.3 (1.8-7.7) K/mm3 Sodium 141 (137-145) mmol/L Potassium 4.4 (3.6-5.0) mmol/L Chloride 106.2 (98-107) mmol/L Carbon Dioxide 27 (22-30) mmol/L Anion Gap 12 mmol/L BUN 16 (7-17) mg/dL Creatinine 0.9 (0.6-1.2) mg/dL Estimated GFR > 60 ml/min BUN/Creatinine Ratio 18 % Glucose 126 H (65-100) mg/dL Calcium 9.1 (8.4-10.2) mg/dL Troponin T < 0.010 (0.00-0.029) ng/mL - EKG Data -: EKG Interpreted by De EKG shows normal: sinus rhythm Rate: normal - EKG Data When compared to previous EKG there are: no significant change Interpretation: no acute changes, unchanged when compared t 12/06/19 10:06 EKG today is unchanged from prior EKG from October 22, 2017 Sinus rhythm, 62 bpm, normal axis, not a STEMI, QTC 446 ms. Borderline low voltage in the lateral leads. - Radiology Data Radiology results: report reviewed, image reviewed Print Report Referring Physician: ED DOC Patient Name: SHANI SANCHEZ Date of : 1960 Sex: Female Report Date: 2019-12-06 Report Status: Finalized Findings [facility] [address] [place] [address] XRay Report Signed Patient: SHANI SANCHEZ MR#: [id number] : 1960 Acct:[id number] Age/Sex: 59 / F ADM Date: 12/06/19 Loc: ED Attending Dr: Ordering Physician: ED MD RACH Date of Service: 12/06/19 Procedure(s): XR chest 1V ap Accession Number(s): [id number] cc: ED MD RACH Fluoro Time In Minutes: CHEST 1 VIEW 12/06/2019 5:18 AM INDICATION / CLINICAL INFORMATION: Chest Pain. COMPARISON: 10/22/19 FINDINGS: SUPPORT DEVICES: None. HEART / MEDIASTINUM: No significant abnormality. LUNGS / PLEURA: No significant pulmonary or pleural abnormality. No pneumothorax. ADDITIONAL FINDINGS: No significant additional findings. IMPRESSION: 1. No acute findings. No change. Signer Name: Caroline Lindsey MD Signed: 12/06/2019 6:21 AM Workstation Name: [id number] Transcribed By: DT Dictated By: Emory Lindsey MD Electronically Authenticated By: Emory Lindsey MD Signed Date/Time: 12/06/19620 DD/ 9 - Medical Decision Making Differential diagnosis, including but not limited to: Costochondritis, bronchitis, pneumonia Assessment and plan: 59-year-old female, who is afebrile, with reassuring vital signs, who is not currently tachycardic, tachypneic or hypoxic, who has no reported pulmonary embolism or DVT risk factors and is low risk by Wells criteria, low risk for major adverse cardiac event as per heart score, with reproducible chest wall pain, EKG unchanged x1, troponin negative x1 in the context of months of symptoms. This is most likely costochondritis with bronchitis. Patient saturating well on room air, and she is in no acute distress. Rest, ice, compression, elevation, alternate Tylenol/NSAIDs, avoidance of triggers, follow-up with outpatient primary care and/or cardiology. Discussed this plan of care with the patient, who verbalized understanding. Return precautions are reviewed. Critical care attestation.: If time is entered above; I have spent that time in minutes in the direct care of this critically ill patient, excluding procedure time. ED Disposition Clinical Impression: Chest wall pain, Bronchitis Disposition: DC-01 TO HOME OR SELFCARE Is pt being admited?: No Does the pt Need Aspirin: No Condition: Stable Additional Instructions: Recommend patient alternate acetaminophen and ibuprofen as prescribed as needed for chest wall pain. Take the albuterol medication as needed for cough and for wheezing. Recommending having home/apartment evaluated by landlord to assess for need for cleaning/maintenance for report of mold. Patient should follow-up with her landlord/property electromechanical inspector to make certain that her living conditions are suitable for human habitation, and free from unclean living conditions. Recommend avoidance of exposure to mold and allergy/allergens. Please follow-up with a primary care doctor or bleach range operator within the next 5 to 7 days. Please return to the emergency room right away with new pain, worsened pain, migration of pain, projectile vomiting, change in mental status, confusion, inability to tolerate liquid feeds, new, worsened or different symptoms not present on the initial emergency room evaluation. Referrals: MEREDITH ANNA MD [Staff Physician] - 3-5 Days ALDO QUINTERO MD [Staff Physician] - 3-5 Days
[2019-12-06] MEDS ORDERED: ACETAMINOPHEN 500 MG TAB PO ONE (08:41)
[2019-12-06] MEDS ORDERED: IBUPROFEN 400 MG TAB PO ONE (08:41)
[2019-12-06 10:18] VITALS: BP 112/62
== END 2019-12-06 10:18 | disposition home or self-care (01) ==
LOC: ED 05:24
DX: J40 Bronchitis, not specified as acute or chronic (principal); R07.89 Other chest pain; I10 Essential (primary) hypertension; Z98.890 Other specified postprocedural states; Z79.1 Long term (current) use of non-steroidal anti-inflammatories (NSAID); Z79.899 Other long term (current) drug therapy
CPT/HCPCS: 36415; 71045; 80048; 84484; 85025; 93005

== ENCOUNTER 2020-11-25 12:19 | Emergency (ER) | payer MEDICARE ==
[2020-11-25] MEDS ORDERED: IPRATROPIUM/ALBUTEROL SULFATE 3 ML AMPUL.NEB IH ONE (12:28)
[2020-11-25] MEDS ORDERED: predniSONE 10 MG TAB PO ONE (12:28)
--- NOTE | 2020-11-25 12:32 | Emergency Department Report ---
ED Shortness of Breath HPI - General Chief Complaint: Dyspnea/Respdistress Stated Complaint: SOB Time Seen by Provider: 11/25/20 12:23 Source: patient Mode of arrival: Ambulatory Limitations: No Limitations - History of Present Illness Initial Comments: Patient presents with shortness of breath. She states that she has been having trouble breathing for the last couple of days. She states that her asthma medication is not helping. She feels as though her chest is tight and has that her throat is closing off. She has had no known allergen exposure. She has had no sick contacts. Patient has not been around anyone with influenza or coronavirus. She states that she does have mold in her house. She had been using a dehumidifier which was helping. She had to stop using it. For the last 2 days, she has noticed a big difference. There is no new pain or swelling in the feet or extremities. She has no productive cough. There has been no fevers or chills. The tightness in her chest is worse with inspiration. It is not exertional. She does not subscribe to orthopnea or PND. - Related Data Home Medications Medication Instructions Recorded Confirmed Last Taken Furosemide [Lasix] 20 mg PO QDAY 09/16/16 09/17/16 09/16/16 Lovastatin [Altoprev] 20 mg PO QPM 09/16/16 09/17/16 09/16/16 amLODIPine [Norvasc] 5 mg PO DAILY 09/16/16 09/17/16 09/17/16 06:30 Previous Rx's Medication Instructions Recorded Last Taken Type Cetirizine HCl [Zyrtec 10mg tab] 10 mg PO DAILY #20 tablet 10/20/17 Unknown Rx Fluticasone [Flonase] 1 spray NS QDAY #1 bottle 10/20/17 Unknown Rx Nystatin Oint [Mycostatin Oint] 1 applicatio TP TID 1 Days #1 tube 10/22/17 Unknown Rx Naproxen [Naprosyn] 375 mg PO BID #30 tablet 12/03/17 Unknown Rx metroNIDAZOLE [Flagyl] 500 mg PO Q12HR #20 tab 04/13/18 Unknown Rx Clindamycin 2% [Clindamycin 2% VAG 1 applicatio VG QHS #7 05/14/18 Unknown Rx CREAM] Ibuprofen [Motrin 800 MG tab] 800 mg PO Q8HR PRN #20 tablet 04/29/19 Unknown Rx Cetirizine HCl [Zyrtec 10mg tab] 10 mg PO DAILY #30 tablet 05/11/19 Unknown Rx predniSONE [Deltasone] 40 mg PO QDAY 7 Days #14 tab 05/11/19 Unknown Rx Acyclovir [Zovirax Tab] 400 mg PO Q8H #21 tab 06/21/19 Unknown Rx Prednisone [predniSONE 10 mg 10 mg PO .TAPER #1 tab.ds.pk 06/21/19 Unknown Rx (6-Day Pack, 21 Tabs)] Cyclobenzaprine [Flexeril] 10 mg PO TID PRN #15 tablet 11/12/19 Unknown Rx Dicyclomine [Bentyl] 20 mg PO Q6H PRN #20 tablet 11/12/19 Unknown Rx Ibuprofen [Motrin] 800 mg PO Q8HR PRN #24 tablet 11/12/19 Unknown Rx Acetaminophen [Non-Aspirin Extra 500 mg PO Q6HR PRN #30 tablet 12/06/19 Unknown Rx Strength] Ibuprofen [Motrin] 600 mg PO Q8H PRN #30 tablet 12/06/19 Unknown Rx Albuterol Sulfate [Albuterol 0.63% 0.63 mg IH TID PRN #90 ml 11/25/20 Unknown Rx NEBS] Prednisone [predniSONE 10 mg 10 mg PO .TAPER #1 tab.ds.pk 11/25/20 Unknown Rx (6-Day Pack, 21 Tabs)] Allergies Allergy/AdvReac Type Severity Reaction Status Date / Time mold Allergy Shortness Verified 12/06/19 13:40 of Breath pollen extracts Allergy Itching Verified 12/06/19 13:40 ED Review of Systems ROS: Stated complaint: SOB Other details as noted in HPI Comment: All other systems reviewed and negative Constitutional: denies: fever Eyes: denies: eye pain ENT: as per HPI Respiratory: see HPI Cardiovascular: as per HPI Endocrine: denies: unexplained weight loss Gastrointestinal: denies: abdominal pain Genitourinary: denies: dysuria Musculoskeletal: denies: back pain Skin: denies: rash Neurological: denies: headache Hematological/Lymphatic: denies: easy bruising ED Past Medical Hx - Past Medical History Previous Medical History?: Yes Hx Hypertension: Yes (2010) Hx Arthritis: Yes Hx Asthma: Yes (uses inhaler) Additional medical history: High Cholesterol - Surgical History Past Surgical History?: Yes Additional Surgical History: gastric sleeve - Family History Family history: hypertension - Social History Substance Use Type: None, Alcohol - Medications Home Medications: Home Medications Medication Instructions Recorded Confirmed Last Taken Type Furosemide [Lasix] 20 mg PO QDAY 09/16/16 09/17/16 09/16/16 History Lovastatin [Altoprev] 20 mg PO QPM 09/16/16 09/17/16 09/16/16 History amLODIPine [Norvasc] 5 mg PO DAILY 09/16/16 09/17/16 09/17/16 06:30 History Cetirizine HCl [Zyrtec 10mg tab] 10 mg PO DAILY #20 tablet 10/20/17 Unknown Rx Fluticasone [Flonase] 1 spray NS QDAY #1 bottle 10/20/17 Unknown Rx Nystatin Oint [Mycostatin Oint] 1 applicatio TP TID 1 Days #1 tube 10/22/17 Unknown Rx Naproxen [Naprosyn] 375 mg PO BID #30 tablet 12/03/17 Unknown Rx metroNIDAZOLE [Flagyl] 500 mg PO Q12HR #20 tab 04/13/18 Unknown Rx Clindamycin 2% [Clindamycin 2% VAG 1 applicatio VG QHS #7 05/14/18 Unknown Rx CREAM] Ibuprofen [Motrin 800 MG tab] 800 mg PO Q8HR PRN #20 tablet 04/29/19 Unknown Rx Cetirizine HCl [Zyrtec 10mg tab] 10 mg PO DAILY #30 tablet 05/11/19 Unknown Rx predniSONE [Deltasone] 40 mg PO QDAY 7 Days #14 tab 05/11/19 Unknown Rx Acyclovir [Zovirax Tab] 400 mg PO Q8H #21 tab 06/21/19 Unknown Rx Prednisone [predniSONE 10 mg 10 mg PO .TAPER #1 tab.ds.pk 06/21/19 Unknown Rx (6-Day Pack, 21 Tabs)] Cyclobenzaprine [Flexeril] 10 mg PO TID PRN #15 tablet 11/12/19 Unknown Rx Dicyclomine [Bentyl] 20 mg PO Q6H PRN #20 tablet 11/12/19 Unknown Rx Ibuprofen [Motrin] 800 mg PO Q8HR PRN #24 tablet 11/12/19 Unknown Rx Acetaminophen [Non-Aspirin Extra 500 mg PO Q6HR PRN #30 tablet 12/06/19 Unknown Rx Strength] Ibuprofen [Motrin] 600 mg PO Q8H PRN #30 tablet 12/06/19 Unknown Rx Albuterol Sulfate [Albuterol 0.63% 0.63 mg IH TID PRN #90 ml 11/25/20 Unknown Rx NEBS] Prednisone [predniSONE 10 mg 10 mg PO .TAPER #1 tab.ds.pk 11/25/20 Unknown Rx (6-Day Pack, 21 Tabs)] ED Physical Exam - General Limitations: No Limitations, Other (Pulse ox was noted to normal. She is not hypoxic) General appearance: alert, in distress (Mild), obese, other (Anxious) - Head Head exam: Present: atraumatic, normocephalic, normal inspection - Eye Eye exam: Present: normal appearance, EOMI. Absent: scleral icterus - ENT ENT exam: Present: normal exam, mucous membranes moist, normal external ear exam - Neck Neck exam: Present: normal inspection. Absent: meningismus - Respiratory Respiratory exam: Present: respiratory distress (Mild), wheezes (Faint expiratory), prolonged expiratory - Cardiovascular Cardiovascular Exam: Present: regular rate, normal rhythm - GI/Abdominal GI/Abdominal exam: Present: soft. Absent: tenderness - Extremities Exam Extremities exam: Absent: tenderness, pedal edema, calf tenderness - Back Exam Back exam: Absent: CVA tenderness (R), CVA tenderness (L) - Neurological Exam Neurological exam: Present: alert, oriented X3, CN II-XII intact, normal gait, reflexes normal. Absent: motor sensory deficit - Psychiatric Psychiatric exam: Present: anxious - Skin Skin exam: Present: warm, dry ED Course Vital Signs 11/25/20 11/25/20 11/25/20 12:22 12:41 12:42 Temperature 98 F 98.0 F Pulse Rate 77 66 Respiratory 16 16 Rate Blood Pressure Blood Pressure 136/75 137/75 [Left] O2 Sat by Pulse 99 100 100 Oximetry 11/25/20 13:25 Temperature 97.8 F Pulse Rate 77 Respiratory 14 Rate Blood Pressure 111/73 Blood Pressure [Left] O2 Sat by Pulse 100 Oximetry - Reevaluation(s) Reevaluation #1: 11/25/20 12:32 X-ray, EKG, and medications were ordered. Reevaluation #2: 11/25/20 13:28 Note was completed. Chest x-ray was reviewed. There is no evidence of pneumonia. Patient is still saying that she cannot breathe. Her saturations are 100%. Haloperidol was ordered. Patient is hyperventilating. EKG is pending. ED Medical Decision Making - Lab Data Rhythm strip: Normal sinus rhythm without ectopy. Monitor observe 10 seconds. - EKG Data -: EKG Interpreted by Me - EKG Data 11/25/20 14:17 EKG shows normal sinus rhythm at 73. Patient has normal intervals including a QRS of 109 and a QT corrected of 331. Patient has artifact noted significantly. There is flattening of the T wave area. Patient has T wave inversion in aVF. There is no old EKG for comparison. - Radiology Data Radiology results: report reviewed - Medical Decision Making Patient presents with shortness of breath. She stated that she had chest tightness as well as difficulty breathing. She was wheezing. She was asking for her asthma medications. Radiographically, there is no evidence of pneumonia, pneumothorax, or congestive heart failure. She does not have a wide mediastinum or pulse deficit that would suggest aortic dissection. EKG is unremarkable. She has no exertion chest pain associated with this. I do not believe this actually represents ACS. She does not have pleuritic chest pain or hypoxia. I do not believe she has PE. She was treated symptomatically and referred for outpatient evaluation and follow-up. Critical Care Time: No Critical care attestation.: If time is entered above; I have spent that time in minutes in the direct care of this critically ill patient, excluding procedure time. ED Disposition Clinical Impression: Wheezing, Shortness of breath, Substernal chest pain, Hyperventilation Disposition: 01 HOME / SELF CARE / HOMELESS Is pt being admited?: No Condition: Stable Instructions: Shortness of Breath, Adult, [id number], Hyperventilation, Nonspecific Chest Pain, Adult, Pain Without a Known Cause Additional Instructions: Drink plenty water. Return for problems. Follow-up with your regular doctor. If you do not have a doctor, follow-up with the referral physician. Continue home medication. Prescriptions: Albuterol Sulfate [Albuterol 0.63% NEBS] 0.63 mg IH TID PRN #90 ml PRN Reason: Wheezing Prednisone [predniSONE 10 mg (6-Day Pack, 21 Tabs)] 10 mg PO .TAPER #1 tab.ds.pk Referrals: PRIMARY CARE, [Primary Care Provider] - 3-5 Days MEREDITH ANNA MD [Staff Physician] - 3-5 Days
[2020-11-25] MEDS ORDERED: HALOPERIDOL LACTATE 5 MG/1 ML INJ IM ONE (13:15)
[2020-11-25 13:27] VITALS: BP 111/73
--- NOTE | 2020-11-25 13:38 | XRay Report ---
CHEST 2 VIEWS INDICATION / CLINICAL INFORMATION: dyspnea. COMPARISON: One view of the chest from 12/06/2019. FINDINGS: SUPPORT DEVICES: None. HEART / MEDIASTINUM: No significant abnormality. LUNGS / PLEURA: No significant pulmonary abnormality. No significant pleural effusion. No pneumothora x. ADDITIONAL FINDINGS: No significant additional findings. IMPRESSION: 1. No acute abnormality of the chest. Signer Name: Vince Walton MD Signed: 11/25/2020 1:34 PM Workstation Name: [id number]
--- NOTE | 2020-11-30 10:00 | Electrocardiograph Report ---
[facility] Test Date: 2020-11-25 Test Time: 13:40:36 Pat Name: SHANI SANCHEZ Department: Room: Gender: F [employer]: ED NURSE : 1960 Requested By: RAMON ATKINSON Order Number: [id number] Reading MD: Madai Paz Measurements Intervals [place] Rate: 73 P: 52 AR: 174 QRS: 42 QRSD: 109 T: 179 QT: 300 QTc: 331 Interpretive Statements Sinus rhythm Nonspecific T wave abnormalities No previous ECG available for comparison Electronically Signed On 11-30-2020 10:00:07 EDT by Madai Paz
== END 2020-11-25 14:27 | disposition home or self-care (01) ==
LOC: ED 12:19
DX: R07.89 Other chest pain (principal); R06.02 Shortness of breath; R06.4 Hyperventilation; J45.909 Unspecified asthma, uncomplicated; I10 Essential (primary) hypertension; M19.90 Unspecified osteoarthritis, unspecified site; E78.00 Pure hypercholesterolemia, unspecified; Z98.890 Other specified postprocedural states; Z91.048 Other nonmedicinal substance allergy status
CPT/HCPCS: 71046; 93005; 94640; 96372; 99283; J1630; J7512